=== PATIENT | female | born 1970 | race Caucasian/White ===

== ENCOUNTER 2020-08-04 18:28 | Emergency (ER) | payer SELFPAY ==
[~2020-08-04] VITALS: Ht 154.9 cm; Wt 51.3 kg
[2020-08-04 18:40] VITALS: Ht 154.9 cm; Wt 51.3 kg
[2020-08-04 20:00] LABS: BASOPHIL % 0.3 % (0-2); PLATELET COUNT 403 x10^3mcL (130-400); RED CELL DISTRIBUTION WIDTH 12.2 % (11.5-14.5)
[2020-08-04 20:14] LABS: CALCIUM 9.4 mg/dL (8.5-10.1); CARBON DIOXIDE 30.1 mmol/L (21-32); CHLORIDE SERUM 95 mmol/L (98-107); CREATININE SERUM 0.9 mg/dL (0.6-1.0); GFR1 > 60 mL/min; GLUCOSE SERUM 105 mg/dL (74-106); POTASSIUM SERUM 3.5 mmol/L (3.5-5.1); SODIUM SERUM 134 mmol/L (136-145)
[2020-08-04 20:16] LABS: ALBUMIN 3.4 g/dL (3.4-5.0); ALKALINE PHOSPHATASE 89 U/L (46-116); ALT/SGPT 33 U/L (14-59); AST/SGOT 16 U/L (15-37); BILIRUBIN TOTAL 0.3 mg/dL (0.20-1.00)
[2020-08-04 20:39] LABS: microscopic required? YES; urine erythrocyte 1+ (NEGATIVE)
[2020-08-04 21:38] VITALS: BP 130/86
== END 2020-08-04 21:37 | disposition home or self-care (01) ==
LOC: ED 18:28
PROVIDERS: Student in an Organized Health Care Education/Training Program
DX: N13.39 Other hydronephrosis (principal); N39.0 Urinary tract infection, site not specified; R91.8 Other nonspecific abnormal finding of lung field; Z90.711 Acquired absence of uterus with remaining cervical stump
CPT/HCPCS: J1885; J2270